=== PATIENT | male | born 1960 | race Caucasian/White ===

== ENCOUNTER → 2020-01-30 17:38 | Outpatient (CLI) | payer MEDICARE ==
[2013-07-17 10:04] VITALS: BMI 22.3
[~2020-01-30 17:38] MED LIST: LISINOPRIL10 MG PO; PEPCID20 MG PO; PROTONIX40 MG PO; TYLENOL 8 HOUR650 MG PO
[2020-01-30 19:14] LABS: BASOPHILS 0.5 % (0-2); EOSINOPHILS 2.2 % (0-7); HEMOGLOBIN 15.8 g/dL (13.5-17.5); IMMATURE GRANULOCYTES 0.5 % (0-5); LYMPHOCYTES 14.6 % (15-50); MCH 28.1 pg (26.0-34.0); MCHC 32.2 g/dL (31.0-37.0); MEAN PLATELET VOLUME 10.2 fL (7.4-10.4); NEUTROPHILS 71.2 % (40-80); RBC 5.63 10x6/uL (4.20-6.10); RDW 15.8 % (11.5-14.5); WBC 16.5 10x3/uL (4.8-10.8)
[2020-01-30 19:15] LABS: PLATELET COUNT 365 10x3/uL (130-400)
[2020-01-30 19:22] LABS: ANION GAP 11.1 mmol/L (8-16); CALCIUM 9.4 mg/dL (8.5-10.1); CARBON DIOXIDE 29.9 mmol/L (21.0-32.0); CREATININE - SERUM 1.1 mg/dL (0.6-1.3)
== END | disposition home or self-care (01) ==
LOC: D.LABREF 17:38
PROVIDERS: ATTEND Family Medicine
DX: J43.9 Emphysema, unspecified (principal); I11.9 Hypertensive heart disease without heart failure; J18.9 Pneumonia, unspecified organism